=== PATIENT | male | born 1990 | race Caucasian/White ===

== ENCOUNTER 2019-11-03 07:29 | Emergency (ER) | payer MEDICAID ==
[~2019-11-03] VITALS: Ht 182.9 cm; Wt 104.3 kg
[2019-11-03 07:43] VITALS: BP 140/89
== END 2019-11-03 08:17 | disposition home or self-care (01) ==
LOC: ER 07:29
DX: J20.9 Acute bronchitis, unspecified (principal)

== ENCOUNTER 2019-12-06 16:18 | Emergency (ER) | payer MEDICAID ==
[~2019-12-06] VITALS: Ht 185.4 cm; Wt 113.4 kg
[2019-12-06 17:05] LABS: Basophils # (auto) 0.1 10 ^3/uL (0-0.2); Eosinophils # (auto) 0.3 10 ^3/uL (0-0.8); Eosinophils % (auto) 4.6 % (0.0-7.0); Hematocrit 46.7 % (41.0-53.0); Hemoglobin 15.8 g/dL (13.5-17.5); Lymphocytes # (auto) 2.4 10 ^3/uL (0.4-5.4); Lymphocytes % (auto) 39.4 % (10.0-50.0); Mean Corpuscular Hemoglobin 29.4 pg (28.0-32.0); Mean Corpuscular Hgb Conc. 33.8 g/dL (32.0-36.0); Mean Corpuscular Volume 87.1 fL (80.0-100.0); Monocytes # (auto) 0.5 10 ^3/uL (0-1.3); Monocytes % (auto) 8.7 % (0.0-12.0); Neutrophils # (auto) 2.8 10 ^3/uL (1.6-8.6); Neutrophils % (auto) 46.3 % (37.0-80.0); Nucleated Red Blood Cells % 0.2 %; Platelet Count (auto) 175 10^3/uL (140-450); Red Blood Cells 5.36 10^6/uL (4.5-5.90); Red Cell Distribution Width 14.1 % (11.8-14.3)
[2019-12-06 17:19] LABS: Potassium 3.5 mmol/L (3.5-5.1)
[2019-12-06 17:23] LABS: BUN/Creatinine Ratio 9.4; Bilirubin, Total 0.6 mg/dL (0.2-1.0); Total Protein 7.8 g/dL (6.4-8.2)
[2019-12-06 20:00] VITALS: BP 120/82
== END 2019-12-06 20:04 | disposition home or self-care (01) ==
LOC: ER 16:18
DX: K29.70 Gastritis, unspecified, without bleeding (principal); K59.00 Constipation, unspecified
CPT/HCPCS: 36415; 74176; 80053; 85025

== ENCOUNTER 2020-04-07 10:48 | Emergency (ER) | payer MEDICAID ==
[~2020-04-07] VITALS: Ht 185.4 cm; Wt 115.2 kg
[2020-04-07 11:16] VITALS: BP 156/93
[2020-04-07] MEDS ORDERED: METHOCARBAMOL 500 MG TAB ONE (11:56)
[2020-04-07] MEDS ORDERED: METHOCARBAMOL 500 MG TAB PO ONE (12:00)
[2020-04-07] MEDS ORDERED: IBUPROFEN 800 MG TAB PO ONE (12:00)
== END 2020-04-07 12:05 | disposition home or self-care (01) ==
LOC: ER 10:48
DX: S33.5XXA Sprain of ligaments of lumbar spine, initial encounter (principal); F17.210 Nicotine dependence, cigarettes, uncomplicated; F32.9 Major depressive disorder, single episode, unspecified; X50.9XXA Other and unspecified overexertion or strenuous movements or postures, initial encounter; Y93.89 Activity, other specified; Y92.89 Other specified places as the place of occurrence of the external cause; Y99.8 Other external cause status
CPT/HCPCS: 81002